=== PATIENT | female | born 1990 | race Two or more races ===

== ENCOUNTER 2024-05-27 16:49 | Emergency (ER) | payer MEDICAID, OTHER ==
[~2024-05-27] VITALS: Ht 154.9 cm; Wt 47.0 kg
--- NOTE | 2024-05-27 18:11 | ED.PDOC ---
History of Present Illness HPI Comments 34F presents to the ER w/ no prior Hx associated to the c/c of ABD pain. Pt reports on having thee ABD pain for 2 weeks as well as having /D for the past 2 days. PMHx of Bipolar. Denies chills, fever, N/V, SOB, CP or other associated symptom's, modifiers, or recent injuries or sick contact at this time. Chief Complaint: Abdominal Pain Time Seen by MD: 17:05 Allergies: Coded Allergies: NO KNOWN ALLERGIES (Unverified , 05/27/24) Information Source: Patient Mode of Arrival: Ambulatory Severity: Moderate Timing: Weeks Duration: Since onset Prehospital treatment: None Past Medical History PAST MEDICAL HISTORY: Denies Past Medical History (Other): Bipolar Surgical History: Denies all surgeries MACHINE DYER History: No Pertinent MACHINE DYER History Family History Family History: Reviewed,noncontributory to illness, Unknown Social History Smoker: Non-Smoker Alcohol: Denies ETOH Use Drugs: Denies Drug Use Lives In: Home Constitutional: denies: chills, diaphoresis, fatigue, fever, malaise, sweats, weakness, others EENTM: denies: blurred vision, double vision, ear bleeding, ear discharge, ear drainage, ear pain, ear ringing, eye pain, eye redness, hearing loss, mouth pain, mouth swelling, nasal discharge, nose bleeding, nose congestion, nose pain, photophobia, tearing, throat pain, throat swelling, voice changes, others Respiratory: denies: cough, hemoptysis, orthopnea, SOB at rest, shortness of breath, SOB with excertion, stridor, wheezing, others Cardiovascular: denies: chest pain, dizzy spells, diaphoresis, Dyspnea on exertion, edema, irregular heart beat, left arm pain, lightheadedness, palpitations, PND, syncope, others Gastrointestinal: reports: abdominal pain, diarrhea; denies: abdomen distended, blood streaked bowels, constipated, dysphagia, difficulty swallowing, hematemesis, melena, nausea, poor appetite, poor fluid intake, rectal bleeding, rectal pain, vomiting, others Genitourinary: denies: abnormal vagina bleeding, burning, dyspareunia, dysuria, flank pain, frequency, hematuria, incontinence, pain, , vagina discharge, urgency, others Neurological: denies: dizziness, fainting, headache, left sided numbness, left sided weakness, numbness, paresthesia, pre-existing deficit, right sided numbness, right sided weakness, seizure, speech problems, tingling, tremors, weakness, others Musculoskeletal: denies: back pain, gout, joint pain, joint swelling, muscle pain, muscle stiffness, neck pain, others Integumetry: denies: bruises, change in color, change in hair/nails, dryness, laceration, lesions, lumps, rash, wounds, others Allergic/Immunocompromised: denies: Difficulty Healing, Frequent Infections, Hives, Itching, others Hematologic/Lymphatic: denies: anemia, blood clots, easy bleeding, easy bruising, swollen glands, others Endocrine: denies: excessive hunger, excessive sweating, excessive thirst, excessive urination, flushing, intolerance to cold, intolerance to heat, unexplained weight gain, unexplained weight loss, others Psychiatric: denies: anxiety, bipolar disorder, depression, hopeless, panic disorder, schizophrenia, sleepless, suicidal, others All Other Systems: Reviewed and Negative Physical Exam General Appearance: No Apparent Distress, Normal HEENT: Normal ENT Inspection, Pharynx Normal, TMs Normal Neck: Full Range of Motion, Non-Tender, Normal, Normal Inspection Respiratory: Chest Non-Tender, Lungs Clear, No Accessory Muscle Use, No Respiratory Distress, Normal Breath Sounds Cardiovascular: No Edema, No JVD, No Murmur, No Gallop, Normal Peripheral Pulses, Regular Rate/Rhythm Breast Exam: Deferred Gastrointestinal: No Organomegaly, Non Tender, No Pulsatile Mass, Normal Bowel Sounds, Soft Genitalia: Deferred Pelvic: Deferred Rectal: Deferred Extremities: No calf tenderness, Normal capillary refill, Normal inspection, Normal range of motion, Non-tender, No pedal edema Musculoskeletal : Apperance: Normal Neurologic: Alert, machine deicer element winder II-XII nml as Tested, No Motor Deficits, Normal Affect, Normal Mood, No Sensory Deficits Cerebellar Function: Normal Reflexes: Normal Skin: Dry, Normal Color, Warm Lymphatic: No Adenopathy Was a procedure done? Was a procedure done?: No Differential Dx Considerations may include: constipation, related conditions, uti, ovarian cyst, ibs, colitis, renal stone, biliary colic X-Ray, Labs, Meds, VS Vital Signs Date Time Temp Pulse Resp B/P (MAP) Pulse Ox O2 Delivery O2 Flow Rate FiO2 1/10/25 17:17 98.1 84 17 100/76 (84) 99 Lab Test 05/27/24 18:20 05/27/24 17:08 Range/Units White Blood Count 7.6 4.4-10.8 10^3/uL Red Blood Count 4.00 4.0-5.20 10^6/uL Hemoglobin 13.2 12.2-16.2 g/dL Hematocrit 38.6 36.0-46.0 % Mean Corpuscular Volume 96.5 80.0-100.0 fL Mean Corpuscular Hemoglobin 33.0 H 28.0-32.0 pg Mean Corpuscular Hemoglobin Concent 34.2 32.0-36.0 g/dL Red Cell Distribution Width 13.0 11.8-14.3 % Platelet Count 170 140-450 10^3/uL Mean Platelet Volume 9.8 6.9-10.8 fL Neutrophils (%) (Auto) 57.9 37.0-80.0 % Lymphocytes (%) (Auto) 32.2 10.0-50.0 % Monocytes (%) (Auto) 6.9 0.0-12.0 % Eosinophils (%) (Auto) 2.7 0.0-7.0 % Basophils (%) (Auto) 0.3 0.0-2.0 % Neutrophils # (Auto) 4.4 1.6-8.6 10 ^3/uL Lymphocytes # (Auto) 2.4 0.4-5.4 10 ^3/uL Monocytes # (Auto) 0.5 0-1.3 10 ^3/uL Eosinophils # (Auto) 0.2 0-0.8 10 ^3/uL Basophils # (Auto) 0 0-0.2 10 ^3/uL Nucleated Red Blood Cells 0.1 % Sodium Level 143 136-145 mmol/L Potassium Level 4.1 3.5-5.1 mmol/L Chloride Level 106 98-107 mmol/L Carbon Dioxide Level 32 H 20-31 mmol/L Anion Gap 5 5-15 Blood Urea Nitrogen 7 L 9-23 mg/dL Creatinine 0.71 0.550-1.02 mg/dL Glomerular Filtration Rate Calc 115 >90 mL/min BUN/Creatinine Ratio 9.9 L 10.0-20.0 Serum Glucose 101 74-106 mg/dL Calcium Level 10.3 8.7-10.4 mg/dL Lipase 49 12-53 U/L Urine Color Light-yellow Yellow Urine Clarity Clear Clear Urine pH 7.5 5.0-9.0 Urine Specific [place] 1.020 1.001-1.035 Urine Protein Negative Negative Urine Ketones Trace Negative Urine Blood Negative Negative /uL Urine Nitrite Negative Negative Urine Bilirubin Negative Negative Urine Urobilinogen Normal Negative mg/dL Urine Leukocyte Esterase Negative Negative /uL Urine RBC 3 0 - 4 /hpf Urine WBC 12 0 - 5 /hpf Urine Squamous Epithelial Cells Few <5 /hpf Urine Bacteria Few H None Seen /hpf Urine Mucus Few None Seen Urine Glucose Normal Normal mg/dL Urine Test Negative Negative Current Medications Medications (Trade) Dose Ordered Sig/Negrita Route Start Time Stop Time Status Last Admin Al Hydrox/Mg Hydrox/Simethicone (Maalox Plus) 15 ml ONCE ONCE PO 05/27/24 18:15 05/27/24 18:16 DC 05/27/24 19:13 Time of 1ST Reevaluation: 17:35 Reevaluation 1ST: Unchanged Patient Education/Counseling: Diagnosis, Treatment, Prognosis, Need For Follow Up Family Education/Counseling: Diagnosis, Treatment, Prognosis, Need For Follow Up, No Family Present Additional Information - The following tests were ordered, and results were reviewed by me: Labs, X- Ray, PHA - I reviewed and agreed with the following test results read by other provider: X-ray - I discussed treatments and results with medical personnel and: (consultants, family) pt has no active tenderness on serial exam. her workup ius essentially normal, with kub showing constipation. i will treat her for this and she is stable to follow up with her doctor Departure 1 Departure Time of Disposition: 19:51 Impression: Primary Impression: Abdominal cramping Additional Impression: Constipated Qualified Codes: K59.01 - Slow transit constipation Disposition: HOME / SELF CARE / HOMELESS Condition: Good e-Prescriptions Polyethylene Glycol 3350 (Miralax) 17 Gm Pow 17 GM PO BID PRN for 2 Days, #4 POW Prov: SILVIA CAMPBELL MD 05/27/24 Discharged With: Plate Glass Installer Critical Care Note Critical Care Time?: No Stability Stability form required: No I personally scribed for SILVIA CAMPBELL MD ([facility]) on 05/27/24 at 18:11. Electronically submitted by Ambrocio Bearden ([email or web address]). SILVIA CAMPBELL MD May 27, 2024 18:11
[2024-05-27 18:44] LABS: Basophils # (auto) 0 10 ^3/uL (0-0.2); Basophils % (auto) 0.3 % (0.0-2.0); Eosinophils # (auto) 0.2 10 ^3/uL (0-0.8); Eosinophils % (auto) 2.7 % (0.0-7.0); Hematocrit 38.6 % (36.0-46.0); Hemoglobin 13.2 g/dL (12.2-16.2); Lymphocytes # (auto) 2.4 10 ^3/uL (0.4-5.4); Lymphocytes % (auto) 32.2 % (10.0-50.0); Mean Corpuscular Hgb Conc. 34.2 g/dL (32.0-36.0); Mean Corpuscular Volume 96.5 fL (80.0-100.0); Monocytes # (auto) 0.5 10 ^3/uL (0-1.3); Monocytes % (auto) 6.9 % (0.0-12.0); Neutrophils # (auto) 4.4 10 ^3/uL (1.6-8.6); Neutrophils % (auto) 57.9 % (37.0-80.0); Nucleated Red Blood Cells % 0.1 %; Platelet Count (auto) 170 10^3/uL (140-450); White Blood Cell 7.6 10^3/uL (4.4-10.8)
[2024-05-27 18:50] LABS: Urine Bacteria FEW /hpf (None Seen); Urine Blood Negative /uL (Negative); Urine Clarity Clear (Clear); Urine Color Light-Yellow (Yellow); Urine Mucus FEW (None Seen); Urine Protein, UAD Negative (Negative); Urine Squamous Epithelial Cell FEW /hpf (<5); Urine Urobilinogen Normal (Negative); Urine WBC 12 /hpf (0 - 5); Urine pH 7.5 (5.0-9.0)
[2024-05-27 18:54] LABS: Chloride 106 mmol/L (98-107); Potassium 4.1 mmol/L (3.5-5.1); Sodium 143 mmol/L (136-145)
[2024-05-27 18:55] LABS: Anion Gap 5 (5-15); Calcium 10.3 mg/dL (8.7-10.4)
[2024-05-27 19:00] LABS: BUN/Creatinine Ratio 9.9 (10.0-20.0); Glucose 101 mg/dL (74-106); Lipase 49 U/L (12-53)
[2024-05-27 19:02] LABS: Blood Urea Nitrogen 7 mg/dL (9-23); Carbon Dioxide 32 mmol/L (20-31)
[2024-05-27] MEDS: MAALOX PLUS or MAALOX 30 ML PO ONE (19:13)
--- NOTE | 2024-05-27 19:20 | DVH ---
EXAMINATION: KUB 2 views CLINICAL HISTORY: pain, r/o constipation COMPARISON: None Findings and impression: Large amount of stool seen within the colon and imaged rectum. Gaseous distention of the distal trans verse and descending colon. Findings appear compatible with history of constipation. If there are a dditional clinical concerns, CT may be considered to further evaluate. No definite evidence of small-bowel obstruction. Upper abdomen is incompletely imaged. No definite evidence of pneumoperitoneum. Bilateral tubal occlusion devices seen.
[2024-05-27] MEDS ORDERED: POLY335015 PO (19:53)
[2024-05-27 20:14] VITALS: BP 100/76; PULSE 70; RESP 18; TEMP 98.6; O2SAT 97
== END 2024-05-27 20:23 | disposition home or self-care (01) ==
LOC: ER 16:49
DX: K59.00 Constipation, unspecified (principal); R10.9 Unspecified abdominal pain; F31.9 Bipolar disorder, unspecified
CPT/HCPCS: 36415; 74018; 80048; 81001; 81025; 83690; 85025